=== PATIENT | female | born 1985 | race Caucasian/White ===

== ENCOUNTER 2017-04-05 08:09 | Inpatient (IN) | payer BC, OTHER ==
[2017-04-05] MEDS ORDERED: Oxytocin in LR* 20 UNITS/1,000 ML BAG IVPB SCH (09:00)
[2017-04-05 09:33] LABS: Hematocrit 34 % (35-47); Hemoglobin 11.4 g/dl (12.0-16.0); Mean Corpuscular HGB Conc 33 g/dl (31-36); Mean Corpuscular Hemoglobin 28 pg (27-31); Mean Corpuscular Volume 83 fL (80-97); Mean Platelet Volume 8 um3 (7.4-10.4); Red Blood Count 4.12 10^6/ul (4.0-5.4); Red Cell Distribution Width 15 % (10.5-15); White Blood Count 10.5 10^3/ul (3.5-10.8)
[2017-04-05] MEDS ORDERED: Witch Hazel PAD* JAR TOPICAL PRN (18:56)
[2017-04-05] MEDS ORDERED: Glycerin ADULT SUPP PR PRN (18:56)
[2017-04-05] MEDS ORDERED: Dibucaine 1% 28.35 GM TUBE PR PRN (18:56)
[2017-04-05] MEDS ORDERED: Acetaminophen TAB* 325 MG PO PRN (18:56)
[2017-04-05] MEDS: Docusate CAP* 100 MG PO SCH (19:58)
[2017-04-05] MEDS: Ibuprofen TAB* 600 MG PO PRN (19:58)
[2017-04-06] MEDS: Ibuprofen TAB* 600 MG PO PRN ×3 (04:51→16:34)
[2017-04-06 06:28] LABS: Hematocrit 32 % (35-47); Hemoglobin 10.7 g/dl (12.0-16.0); Mean Corpuscular HGB Conc 33 g/dl (31-36); Mean Corpuscular Hemoglobin 28 pg (27-31); Mean Corpuscular Volume 84 fL (80-97); Mean Platelet Volume 8 um3 (7.4-10.4); Red Blood Count 3.86 10^6/ul (4.0-5.4); Red Cell Distribution Width 15 % (10.5-15); White Blood Count 13.8 10^3/ul (3.5-10.8)
[2017-04-06] MEDS: Docusate CAP* 100 MG PO SCH ×2 (08:48→14:14)
[2017-04-06] MEDS ORDERED: Ferrous Gluconate TAB* 324 MG TAB PO SCH (09:00)
[2017-04-06 16:00] VITALS: BP 128/63
== END 2017-04-06 19:30 | disposition home or self-care (01) | DRG 560 ==
LOC: MCHOBOUT 08:09 → MCHOB 08:38
PROVIDERS: ADMIT Midwife; ATTEND Midwife
PROC: 10907ZC Drainage of Amniotic Fluid, Therapeutic from Products of Conception, Via Natural or Artificial Opening (ICD-10-PCS; principal; 2017-04-05)
PROC: 10E0XZZ Delivery of Products of Conception, External Approach (ICD-10-PCS; 2017-04-05)
PROC: 4A1HXCZ Monitoring of Products of Conception, Cardiac Rate, External Approach (ICD-10-PCS; 2017-04-05)
PROC: 0HQ9XZZ Repair Perineum Skin, External Approach (ICD-10-PCS; 2017-04-05)
DX: O48.0 Post-term pregnancy (principal); O70.0 First degree perineal laceration during delivery; Z88.2 Allergy status to sulfonamides; Z3A.40 40 weeks gestation of pregnancy; Z37.0 Single live birth
CPT/HCPCS: 36415; 85025; 85027; 86850; 86900; 86901; A9270-GY

== ENCOUNTER 2019-04-05 12:36 | Inpatient (IN) | payer BC ==
[2019-04-05] MEDS ORDERED: Buffered Lidocaine 1% SYRIN* 1 ML/SYRINGE INTRADERM ONE (14:01)
[2019-04-05] MEDS ORDERED: Lactated Ringers 1000 ML Bag* 1,000 ML IV ONE (14:01)
--- NOTE | 2019-04-05 14:12 | HP ---
General Information - Reason for Visit 33yo, , IUP@40+5 here in early labor - General Information Maternal Age: 33 Grav: 2 Para: 1 SAB: 0 IEA: 0 Estimated Due Date: 04/03/17 Determined By: LMP Gestational Age in Weeks/Days: 40+5 Maternal Blood Type and Rh: A Positive - Results this Serology/RPR Result: Non-Reactive Rubella Result: Immune HBsAg Result: Negative HIV Result: Negative GBS Culture Result: Negative Past Medical History Delivery History: Hx Uncomplicated Vaginal Delivery Past Medical History Comment: Migraine Back pain Thyroid disease Varicose veins orthostatic hypotension pseudocholinesterase deficiency - heterozygous - will have prolonged paralysis after certain anesthesia Pertinent Past Surgical History: None Family History Comment: Father: DMII, HTN, hypercholesterolemia, obesity Mother: obesity, RA, lupus, atrial fibrillation, HTN PGM: throat CA PGF: d/t NE MGM: dementia MGF: d/t accident - Antepartal Records Antepartal Records: Reviewed, Uncomplicated Review of Systems Constitutional: Uncomfortable CV Complaint: No Respiratory: Shortness of Breath: No Gastrointestinal: No Nausea/Vomiting Genitourinary: Bleeding - bloody show starting yesterday, No Dysuria Musculoskeletal: Contractions Neurological: No Headache, No Visual Changes Movement: Normal Exam Allergies/Adverse Reactions: Allergies MS Sulfa Antibiotics [Sulfa Antibiotics] Allergy (Intermediate, Verified 10:07) Rash BP 131/72, HR 83, RR 18, O2 100, temp 98 - Measurements Height: 6 ft 2 in Weight: 234 lb Weight in lbs: [id number] Body Mass Index (BMI): 30.0 Pre- Weight: 207 lb Weight Gained This : 27 lbs and 0 ozs - Exam Breast: Breast Exam Deferred CVA: No CVA Tenderness Extremities: No Edema Heart: Normal Rhythm/Heart Sounds HEENT: No Significant Findings Lungs: Clear Bilaterally Rectal: Rectal Exam Deferred Reflexes: DTR 2+ - Abdominal Exam Abdomen Exam: Non-Tender - Ultrasound/Biophysical Profile Ultrasound Status: Not Done Targeted Exam Findings Estimated Weight: 8lbs Cervical Exam: 4cm Effacement: 70% Station: -1 Presenting Part: Vertex Membrane Status: Intact Bleeding/Discharge: Bloody Show EFM Findings - External Monitor Findings External Monitor Findings: Accelerations Present, No Pattern of Variable or Late Decelerations, Variability Moderate, Baseline Rate Changing External Monitor Findings Comment: No evidence of metabolic acidemia Contractions: Regular, 45-90 Seconds - 4 mins Assessment/Plan - Assessment 33yo, , IUP@40+5, here in early labor A+, GBS negative, RI Uncomplicated course No evidence of metabolic acidemia Regular contractions Making cervical change since last check in office - Plan Plan: Admit - Anticipate Vaginal Delivery Plan Comment: Admit to L&D Pt to labor in tub on yoga ball If contractions don't pick-up in intensity - consider AROM or Pitocin Start IV now Anticipate progression to active labor - Date/Time of Admission Date of Admission: 04/05/19 Time of Admission: 02:00
[2019-04-05] MEDS ORDERED: Oxytocin in LR* 20 UNITS/1,000 ML BAG IVPB SCH (15:00)
[2019-04-05] MEDS ORDERED: Lactated Ringers 1000 ML Bag* 1,000 ML IV SCH ×2 (15:00→18:00)
[2019-04-05 15:19] LABS: ABS Basophils 0.1 10^3/ul (0-0.2); ABS Lymphocytes 1.6 10^3/ul (1.0-4.8); ABS Monocytes 0.6 10^3/ul (0-0.8); ABS Neutrophils 7.9 10^3/ul (1.5-7.7); Eosinophil % 0.4 %; Hematocrit 37 % (35-47); Lymphocyte % 16.1 %; Mean Corpuscular HGB Conc 33 g/dL (31-36); Mean Corpuscular Hemoglobin 28 pg (27-31); Mean Corpuscular Volume 85 fL (80-97); Mean Platelet Volume 7.8 fL (7.4-10.4); Nucleated Red Blood Cells % 0.1; Platelet Count 192 10^3/uL (150-450); Red Blood Count 4.34 10^6 /uL (3.70-4.87); Red Cell Distribution Width 15 % (10-15); White Blood Count 10.2 10^3/uL (3.5-10.8)
[2019-04-05 15:44] LABS: Urine Benzodiazepine Screen None Detected (None Detect); Urine Opiates Screen None Detected (None Detect)
--- NOTE | 2019-04-05 16:26 | PN ---
Progress Note - Progress Note Date of Service: 04/05/19 Note: S: Pt very uncomfortable. Breathing and moaning through contractions. O: VE: 7-8/100/-1, bulging bag intermittent monitoring: FHR 120 Contractions every 4 minutes A: Active labor No evidence of metabolic acidemia P: Anticipate
[2019-04-05] MEDS ORDERED: Witch Hazel PAD* JAR TOPICAL PRN (17:42)
[2019-04-05] MEDS ORDERED: Acetaminophen TAB* 325 MG PO PRN (17:42)
[2019-04-05] MEDS ORDERED: OXYTOCIN* 10 UNITS/ML 1 ML VIAL IM ONE (17:42)
[2019-04-05] MEDS ORDERED: Dibucaine 1% 28.35 GM TUBE PR PRN (17:42)
[2019-04-05] MEDS ORDERED: Glycerin ADULT SUPP PR PRN (17:42)
--- NOTE | 2019-04-05 17:44 | PROCNOTE ---
[facility] OB: Delivery Note - Delivery A Date of : 04/05/19 Time of : 17:02 Harts Sex: Female Gestational Age in Weeks and Days at Delivery: 144 Weeks and 4 Days Delivery Method: Spontaneous Vaginal Labor: Spontaneous Did Patient attempt ?: N/A, No Previous Amniotic Fluid: Clear Estimated Blood Loss: 250 Anesthesia/Analgesia: None Delivered By: Heather Santillan - Perineum Perineal Injury: Periurethral Laceration, Perineal Laceration, 1st Degree Perineal Injury Comment: Periurethral abrasion, hemostatic, not repaired. First degree repaired. Perineal Repair: By Delivering Practioner - Events Delivery Events of Note: Pitocin Only After Delivery - Risk for Falls Other Risk for Falls: Orthostatic hypotension - Additional Delivery Notes Additional Delivery Notes: G3, now P3 at 40+5 weeks admitted to labor and delivery in early labor. She progressed to active labor, AROM to clear fluid at 1645. She progressed to complete and complete and began spontaneously pushing at 1657. Baby delivered OP at 1702, shoulders and compound right hand in same push into father's hands. brought to maternal abdomen by mother. Spontaneous cry, HR > 110. Apgars 9 and 9. Cord doubly clamped and cut by 's father once pulsations ceased, 5 minutes. Placenta delivered spontaneous and kosta at 1707. Pitocin , 10mg, IM given. Fundus firm. Perineum and vagina carefully inspected, 1st degree perineal laceration repaired under local anesthetic. Small, periurethral abrasion noted, hemostatic, not repaired. Female infant , mother and baby stable at time of note. EBL = 250cc.
[2019-04-05] MEDS ORDERED: Lidocaine 1% INJ* 10 MG/ML 30 ML SDV ONE (19:02)
[2019-04-05] MEDS: Ibuprofen TAB* 600 MG PO SCH (19:23)
[2019-04-05] MEDS ORDERED: Simethicone TAB* 80 MG TAB.CHEW PO SCH (21:00)
[2019-04-05] MEDS: Docusate CAP* 100 MG PO SCH (21:18)
[2019-04-06] MEDS: Ibuprofen TAB* 600 MG PO SCH ×3 (03:57→13:14)
[2019-04-06 08:05] LABS: ABS Basophils 0.1 10^3/ul (0-0.2); ABS Eosinophils 0.1 10^3/ul (0-0.6); ABS Lymphocytes 1.9 10^3/ul (1.0-4.8); ABS Monocytes 0.7 10^3/ul (0-0.8); ABS Neutrophils 8.4 10^3/ul (1.5-7.7); Eosinophil % 0.7 %; Hematocrit 34 % (35-47); Hemoglobin 11.1 g/dL (12.0-16.0); Lymphocyte % 17.1 %; Mean Corpuscular HGB Conc 33 g/dL (31-36); Mean Corpuscular Hemoglobin 28 pg (27-31); Mean Corpuscular Volume 84 fL (80-97); Mean Platelet Volume 7.7 fL (7.4-10.4); Platelet Count 201 10^3/uL (150-450); Red Blood Count 4.02 10^6 /uL (3.70-4.87); Red Cell Distribution Width 15 % (10-15); White Blood Count 11.1 10^3/uL (3.5-10.8)
[2019-04-06] MEDS: Docusate CAP* 100 MG PO SCH ×2 (08:49→13:15)
[2019-04-06] MEDS ORDERED: Ferrous Gluconate TAB* 324 MG TAB PO SCH (09:00)
[2019-04-06 16:19] VITALS: BP 114/70
== END 2019-04-06 17:50 | disposition home or self-care (01) | DRG 560 ==
LOC: MCHOBOUT 12:36 → MCHOB 13:57
PROVIDERS: ADMIT Advanced Practice Midwife; ATTEND Advanced Practice Midwife
PROC: 10E0XZZ Delivery of Products of Conception, External Approach (ICD-10-PCS; principal; 2019-04-05)
PROC: 10907ZC Drainage of Amniotic Fluid, Therapeutic from Products of Conception, Via Natural or Artificial Opening (ICD-10-PCS; 2019-04-05)
PROC: 0HQ9XZZ Repair Perineum Skin, External Approach (ICD-10-PCS; 2019-04-05)
DX: O48.0 Post-term pregnancy (principal); Z37.0 Single live birth; O70.0 First degree perineal laceration during delivery; O71.82 Other specified trauma to perineum and vulva; O26.50 Maternal hypotension syndrome, unspecified trimester; O99.284 Endocrine, nutritional and metabolic diseases complicating childbirth; E07.9 Disorder of thyroid, unspecified; O75.89 Other specified complications of labor and delivery; E88.09 Other disorders of plasma-protein metabolism, not elsewhere classified; Z3A.40 40 weeks gestation of pregnancy
CPT/HCPCS: 36415; 80307; 85025; 86850; 86900; 86901; A9270-GY; J2590